=== PATIENT | female | born 1950 | race Caucasian/White ===

== ENCOUNTER 2019-04-07 09:46 | Inpatient (IN) | payer MEDICARE, BC ==
[2019-04-07 10:28] VITALS: BP 131/71
[2019-04-07] MEDS ORDERED: Magnesium Hydroxide (MOM) 30 mL UDC PO PRN (11:17)
[2019-04-07] MEDS ORDERED: Maalox 30 mL Cup PO PRN (11:17)
--- NOTE | 2019-04-07 21:57 | History & Physical ---
ADMIT DATE: 04/07/2019 HISTORY OF PRESENT ILLNESS: The patient is a 69-year-old female with long history of degenerative joint disease, dementia, admitted to [facility] under Dr. Carrillo's service for evaluation and treatment. No fever, no chills, no nausea, no vomiting. PAST MEDICAL HISTORY: Significant for degenerative joint disease, dementia, and psychosis. PAST SURGICAL HISTORY: No recent surgery. ALLERGIES: None. MEDICATIONS: Follow admission reconciliation. SOCIAL HISTORY: No smoking, no alcohol, no drug. FAMILY HISTORY: Noncontributory. REVIEW OF SYSTEMS: RENAL SYSTEM: No history of chronic renal disorder. CARDIOVASCULAR SYSTEM: No coronary artery disease. ENDOCRINE SYSTEM: No diabetes or thyroid problem. GASTROINTESTINAL SYSTEM: No upper or lower gastrointestinal bleed. NEUROLOGICAL SYSTEM: Seizure disorder. SKELETOMUSCULAR SYSTEM: She has degenerative joint disease. HEMATOLOGIC SYSTEM: No bleeding tendencies. RESPIRATORY SYSTEM: No asthma. GENITOURINARY: No dysuria or hematuria. PHYSICAL EXAMINATION: GENERAL: She is awake, not coherent, confused. VITAL SIGNS: Temperature 97.7, heart rate 63, blood pressure 131/71. HEENT: Normocephalic. Pupils reacting equally to light and accommodation. Sclerae clear. NECK: Supple. Negative for lymphadenopathy, JVD or bruit. CHEST: Entry of air bilaterally normal. No rhonchi or wheezing. HEART: S1, S2 normal. No gallop rhythm. ABDOMEN: Soft, bowel sounds positive. EXTREMITIES: No edema. NEUROLOGICAL: She is awake, not coherent. No focal muscle deficits. Cranial nerves 2-12 are intact. ASSESSMENT: 1. Degenerative joint disease. 2. Dementia. 3. Psychosis. PLAN: The patient in the hospital under Dr. Carrillo's service. Medical problem addressed during hospitalization is psychosis. Medical problem addressed at discharge, degenerative joint disease. The patient is medically stable for activity. Thank you Dr. Carrillo for asking me to see your patient. JOB# [id number]
--- NOTE | 2019-04-07 22:30 | Psychiatric Evaluation ---
DATE OF SERVICE: 04/07/2019 IDENTIFYING DATA: The patient is a 69-year-old woman, currently homeless. Information obtained by directly interviewing the patient as well as reviewing the admission papers and they are reliable. JUSTIFICATION OF HOSPITALIZATION: The patient is admitted on a 5150 as being gravely disabled and a danger to self. CHIEF COMPLAINT: "I don't know." HISTORY OF PRESENT ILLNESS: This is the first psychiatric hospitalization to [facility] for this patient who has been transferred from [facility] in [place]. As per the information, the patient is reported to have been brought over there. The patient has been medically cleared. The patient has been grossly psychotic and is not able to provide much of information where she has been stating. The patient has been placed on Zyprexa and has been medically cleared and transferred over here for further stabilization and when I am trying to talk to the patient, the patient is curling up in the bed and is not providing much of information. The patient's eye contact is noted to be very poor. Mood is noted to be dysphoric. Affect is noted to be constricted. The patient is stating that she needs her medication, that?s all. PAST PSYCHIATRIC HISTORY: The patient is reported to have been diagnosed to have schizophrenia, chronic paranoid type and has been on Zyprexa, but has not been compliant with medication. MEDICAL HISTORY: Physical examination is requested to be done by Dr. Pyle. SUBSTANCE ABUSE HISTORY: None. PHYSICAL OR SEXUAL ABUSE HISTORY: None. LEGAL PROBLEMS: None at this time. STRENGTH AND ASSETS: The patient is motivated. MENTAL STATUS EXAMINATION: The patient is a 69-year-old woman looking her stated age, superficially cooperative. Eye contact is poor. Mood is noted to be irritable. Affect is constricted. The patient has paranoid delusions, but denies any command hallucinations. The patient is not presenting with any suicidal or homicidal ideation, but the patient is gravely disabled. The patient has no place to return to. The patient is alert and aware that she is in the hospital. Attention span and concentration are noted to be poor. The patient's short term memory is noted to be poor. Long-term memory seems to be fair. The patient is not able to recall where she was staying prior to being in the hospital DIAGNOSTIC IMPRESSION: AXIS I: Schizophrenia, chronic paranoid type. AXIS II: None. AXIS III: As per Dr. Pyle. IMMEDIATE TREATMENT PLAN: The patient is going to be observed on the inpatient unit, started on the Zyprexa 2.5 mg at bedtime. The patient is going to be closely monitored. Once stabilized, the patient is going to be discharged to self to be followed up on an outpatient basis. JOB# [id number]
[2019-04-08] MEDS: Multivitamin Tab PO SCH (08:36)
--- NOTE | 2019-04-08 21:00 | Internal Medicine Prog Note ---
Internal Medicine Subjective - Subjective Service Date: 04/08/19 Patient seen and examined:: with staff (THE PATIENT IS CONFUSED) Patient is:: awake, non-verbal, in bed, confused Per staff patient has:: no adverse event Internal Medicine Objective - Physical Exam Vitals and I&O: Vital Signs Temp 98.1 F 04/08/19 20:08 Pulse 72 04/08/19 20:08 Resp 20 04/08/19 20:08 BP 109/74 04/08/19 20:08 Pulse Ox 95 04/08/19 20:08 Intake & Output 04/08/19 04/08/19 04/09/19 06:59 18:59 06:59 Intake Total 120 120 240 Balance 120 120 240 Intake: Oral 120 120 240 Other: # Voids 2 2 1 # Bowel Movements 0 0 Active Medications: Current Medications Acetaminophen (Tylenol) 650 mg PO Q4HR PRN PRN Reason: Mild Pain (Scale 1-3) Stop: 06/06/19 11:16 Acetaminophen (Tylenol) 650 mg PO Q4H PRN PRN Reason: TEMP ABOVE 100 Stop: 06/06/19 11:35 Al Hydrox/Mg Hydrox/Simethicone (Maalox) 30 ml PO Q4HR PRN PRN Reason: GI DISTRESS Stop: 06/06/19 11:16 Lorazepam (Ativan) 0.5 mg PO Q6HR PRN; Protocol PRN Reason: Anxiety Stop: 06/06/19 11:20 Last Admin: 04/08/19 14:08 Dose: 0.5 mg Magnesium Hydroxide (Milk Of Magnesia) 30 ml PO HS PRN PRN Reason: Constipation Multivitamins/Vitamin C (Theragran) 1 tab PO DAILY DAYLIN Stop: 06/07/19 08:59 Last Admin: 04/08/19 08:36 Dose: 1 tab Olanzapine (Zyprexa) 2.5 mg PO HS DAYLIN; Protocol Stop: 06/06/19 20:59 Last Admin: 04/07/19 21:23 Dose: 2.5 mg Zolpidem Tartrate (Ambien) 5 mg PO HS PRN PRN Reason: Insomnia Stop: 06/06/19 11:16 General: demented HEENT: NC/AT, PERRLA, EOMI, anicteric sclerae, throat clear Neck: Supple, No JVD, No thyromegaly, +2 carotid pulse wo bruit, No LAD, + JVD Lungs: CTAB Cardiovascular: RRR, Normal S1, Normal S2, without murmur Abdomen: soft, non-tender, non-distended Extremities: clear Neurological: no change Internal Medicine Assmt/Plan - Assessment Assessment: 1.DJD. 2.DEMENTIA. 3.PSYCHOSIS - Plan Plan: CONTINUE ON CURRENT MEDICATION AND DET
[2019-04-09] MEDS: Multivitamin Tab PO SCH (08:05)
--- NOTE | 2019-04-09 09:23 | Progress Notes ---
DATE: 04/08/2019 SUBJECTIVE: Staff was spoken to. The patient is interviewed. Mood is noted to be irritable. Affect is constricted. The patient is isolative and withdrawn, continues to be very paranoid and is responding to internal stimuli. The patient is currently on olanzapine and has been able to tolerate the medications. No side effects to the medications are noted. ASSESSMENT: The patient is still impulsive and paranoid. PLAN: To continue the patient with supportive therapy and followup. JOB# [id number]
--- NOTE | 2019-04-09 20:53 | General Progress Note ---
Subjective - Review of Systems Service Date: 04/09/19 Subjective: resting comfortably no distress Objective - Physical Exam Vitals and I&O: Vital Signs Temp 97.9 F 04/09/19 20:45 Pulse 66 04/09/19 20:45 Resp 18 04/09/19 20:45 BP 112/72 04/09/19 20:45 Pulse Ox 91 04/09/19 20:45 Intake & Output 04/09/19 04/09/19 04/10/19 06:59 18:59 06:59 Intake Total 300 240 Balance 300 240 Intake: Oral 300 240 Other: # Voids 1 2 # Bowel Movements 0 Active Medications: Current Medications Acetaminophen (Tylenol) 650 mg PO Q4HR PRN PRN Reason: Mild Pain (Scale 1-3) Stop: 06/06/19 11:16 Acetaminophen (Tylenol) 650 mg PO Q4H PRN PRN Reason: TEMP ABOVE 100 Stop: 06/06/19 11:35 Al Hydrox/Mg Hydrox/Simethicone (Maalox) 30 ml PO Q4HR PRN PRN Reason: GI DISTRESS Stop: 06/06/19 11:16 Lorazepam (Ativan) 0.5 mg PO Q6HR PRN; Protocol PRN Reason: Anxiety Stop: 06/06/19 11:20 Last Admin: 04/08/19 14:08 Dose: 0.5 mg Magnesium Hydroxide (Milk Of Magnesia) 30 ml PO HS PRN PRN Reason: Constipation Multivitamins/Vitamin C (Theragran) 1 tab PO DAILY DAYLIN Stop: 06/07/19 08:59 Last Admin: 04/09/19 08:05 Dose: 1 tab Olanzapine (Zyprexa) 5 mg PO HS DAYLIN; Protocol Stop: 06/08/19 20:59 Zolpidem Tartrate (Ambien) 5 mg PO HS PRN PRN Reason: Insomnia Stop: 06/06/19 11:16 General: No acute distress HEENT: Atraumatic, PERRLA Neck: Supple, JVD, Thyromegaly Cardiovascular: Regular rate, Normal S1, Normal S2 Lungs: Clear to auscultation Abdomen: Bowel sounds, Soft Assessment/Plan - Assessment Assessment: 1.DJD. 2.DEMENTIA. 3.PSYCHOSIS - Plan Plan: continue current treatment
--- NOTE | 2019-04-09 22:56 | Progress Notes ---
DATE: 04/09/2019 SUBJECTIVE: Staff was spoken to. The patient is interviewed. Mood is noted to be irritable. Affect is constricted. The patient has been pacing most of the time on the unit. The patient has been getting into other people's belongings. The patient has no insight into her illness. The patient is very paranoid and has been screaming and yelling when she does not get her way. The patient is currently on the 2.5 mg of Zyprexa. I am planning to increase that one to 5 mg at bedtime and follow the patient. ASSESSMENT: The patient is still psychotic and impulsive. PLAN: To continue the patient with the current medications and follow her up. The patient is not ready to be discharged to a lower level of care in view of her psychosis. JOB# [id number]
[2019-04-10] MEDS: Multivitamin Tab PO SCH (08:30)
--- NOTE | 2019-04-10 13:59 | General Progress Note ---
Subjective - Review of Systems Service Date: 04/10/19 Subjective: resting comfortably no distress Objective - Physical Exam Vitals and I&O: Vital Signs Temp 97.3 F 04/10/19 06:24 Pulse 92 04/10/19 06:24 Resp 20 04/10/19 06:24 BP 110/74 04/10/19 06:24 Pulse Ox 96 04/10/19 06:24 Intake & Output 04/09/19 04/10/19 04/10/19 18:59 06:59 18:59 Intake Total 240 Balance 240 Intake: Oral 240 Other: # Voids 2 Active Medications: Current Medications Acetaminophen (Tylenol) 650 mg PO Q4HR PRN PRN Reason: Mild Pain (Scale 1-3) Stop: 06/06/19 11:16 Acetaminophen (Tylenol) 650 mg PO Q4H PRN PRN Reason: TEMP ABOVE 100 Stop: 06/06/19 11:35 Al Hydrox/Mg Hydrox/Simethicone (Maalox) 30 ml PO Q4HR PRN PRN Reason: GI DISTRESS Stop: 06/06/19 11:16 Lorazepam (Ativan) 0.5 mg PO Q6HR PRN; Protocol PRN Reason: Anxiety Stop: 06/06/19 11:20 Last Admin: 04/10/19 12:53 Dose: 0.5 mg Magnesium Hydroxide (Milk Of Magnesia) 30 ml PO HS PRN PRN Reason: Constipation Multivitamins/Vitamin C (Theragran) 1 tab PO DAILY DAYLIN Stop: 06/07/19 08:59 Last Admin: 04/10/19 08:30 Dose: 1 tab Olanzapine (Zyprexa) 5 mg PO HS DAYLIN; Protocol Stop: 06/08/19 20:59 Zolpidem Tartrate (Ambien) 5 mg PO HS PRN PRN Reason: Insomnia Stop: 06/06/19 11:16 Last Admin: 04/09/19 20:56 Dose: 5 mg General: No acute distress HEENT: Atraumatic, PERRLA Neck: Supple, JVD, Thyromegaly Cardiovascular: Regular rate, Normal S1, Normal S2 Lungs: Clear to auscultation Abdomen: Bowel sounds, Soft Assessment/Plan - Assessment Assessment: 1.DJD. 2.DEMENTIA. 3.PSYCHOSIS - Plan Plan: continue current treatment Nutritional Asmnt/Malnutr-PDOC - Dietary Evaluation Malnutrition Findings (Please click <Entered> for more info): Nutritional Asmnt/Malnutrition Start: 04/10/19 11: 32 Text: Status: Complete Freq: Protocol: Document 04/10/19 11:32 RUFINO (Rec: 04/10/19 11:36 [email or web address] [id number]) Nutritional Asmnt/Malnutrition Patient General Information Nutritional Screening Low Risk Consult Diagnosis Psychosis Pertinent Medical Hx/Surgical Hx DJD, Dementia, Psychosis Subjective Information Consult: Wound to abdomen/ nutrition Pt is a 69-year-old female admitted on 04/07 d/t psychosis . Pt is eating an estimated 45 % of meals x2 days Per Meal/ Nutrition Activity Record. Dietary is currently providing an estimated 2100 kcals and 100 gm Pro, per Pt PO intake this is providing an estimated 945 kcals and 45gm Pro to meet 60% kcal and 70% Pro needs. Spoke with nurse Lara, pt ate good this morning. Stated he will update the meal/nutrition activity log for PO yesterday as she ate well. Stated pt wound is healed well, no longer open and scab is almost gone as well. Reviewed wound pictures in pt chart, wound progression documented and wound is scabbed and healing as Lara stated. Anthropometrics HT: 54 WT: 139 LB (63.18 kg) BMI: 23.89 (Normal) GI/ Skin Integrity GI: WNL, Soft, Flat BM: Not Noted I/O: 240/Not Noted Skin: Abdominal Wound, erythema, reddened Vasquez: 21 Diet Order: Regular Estimated Energy Needs: ( Geriatric, CBW) 6520-3856 kcals (25-30 kcals/ kg) 63-76g Pro (1.0-1.2 g/kg) 7534-8246 ml (25-30 ml/kg) Current Diet Order/ Nutrition Support Regular Pertinent Medications Maalox (PRN), MOM (PRN), Theragran Pertinent Labs No pertinent labs drawn/ charted. Nutritional Hx/Data Height 1.63 m Height (Calculated Centimeters) 162.6 Current Weight (lbs) 63.049 kg Weight (Calculated Kilograms) 63.0 Weight (Calculated Grams) 61999.3 [place] Body Weight 120 LB (54.55 kg) % [place] Body Weight 116 Body Mass Index (BMI) 23.8 Weight Status Approriate GI Symptoms GI Symptoms None Last BM Not Noted Skin Integrity/Comment: Skin: Abdominal Wound, erythema, reddened Vasquez: 21 NurseLara stated pt wound is healed well, no longer open and scab is almost gone as well. Reviewed wound pictures in pt chart, wound progression documented, and wound is scabbed and healing as Lara stated. Estimated Nutritional Goals BEE in Kcals: Using Current wt Calories/Kcals/Kg 25-30 Kcals Calculated 5420-4857 Protein: Using Current wt Protein g/k.0-1.2 Protein Calculated 63-76 Fluid: ml 2784-1443 ml (25-30 ml/kg) Nutritional Problem No current Nutrition Prob Problem No nutrition diagnosis at this time. Etiology N/A Signs/Symptoms: N/A Malnutrition Related to Morbid Obesity Malnutrition related to morbid obesity No Intervention/Recommendation Comments Continue regular diet as tolerated. Expected Outcomes/Goals Expected Outcomes/Goals 1. PO intake to meet 75% of estimated nutritional needs. 2. Monitor PO intake, wt, nutrition related labs, and skin integrity to trend WNL. 3. F/U as low risk in 7-10 days, 04/17-04/20
[2019-04-11] MEDS: Multivitamin Tab PO SCH (08:10)
--- NOTE | 2019-04-11 18:16 | Internal Medicine Prog Note ---
Internal Medicine Subjective - Subjective Service Date: 04/11/19 Patient seen and examined:: without staff (SHE IS DOING WELL) Patient is:: awake, non-verbal, in bed, confused Per staff patient has:: no adverse event Internal Medicine Objective - Physical Exam Vitals and I&O: Vital Signs Temp 98.0 F 04/11/19 15:30 Pulse 64 04/11/19 15:30 Resp 20 04/11/19 15:30 BP 134/90 04/11/19 15:30 Pulse Ox 97 04/11/19 15:30 Intake & Output 04/10/19 04/11/19 04/11/19 18:59 06:59 18:59 Intake Total 900 420 Balance 900 420 Intake: Oral 900 420 Other: # Voids 3 2 # Bowel Movements 1 0 Active Medications: Current Medications Acetaminophen (Tylenol) 650 mg PO Q4HR PRN PRN Reason: Mild Pain (Scale 1-3) Stop: 06/06/19 11:16 Last Admin: 04/11/19 09:25 Dose: 650 mg Acetaminophen (Tylenol) 650 mg PO Q4H PRN PRN Reason: TEMP ABOVE 100 Stop: 06/06/19 11:35 Al Hydrox/Mg Hydrox/Simethicone (Maalox) 30 ml PO Q4HR PRN PRN Reason: GI DISTRESS Stop: 06/06/19 11:16 Lorazepam (Ativan) 0.5 mg PO Q6HR PRN; Protocol PRN Reason: Anxiety Stop: 06/06/19 11:20 Last Admin: 04/10/19 21:28 Dose: 0.5 mg Magnesium Hydroxide (Milk Of Magnesia) 30 ml PO HS PRN PRN Reason: Constipation Multivitamins/Vitamin C (Theragran) 1 tab PO DAILY DAYLIN Stop: 06/07/19 08:59 Last Admin: 04/11/19 08:10 Dose: 1 tab Olanzapine (Zyprexa) 5 mg PO HS DAYLIN; Protocol Stop: 06/08/19 20:59 Last Admin: 04/10/19 20:25 Dose: 5 mg Zolpidem Tartrate (Ambien) 5 mg PO HS PRN PRN Reason: Insomnia Stop: 06/06/19 11:16 Last Admin: 04/11/19 00:19 Dose: 5 mg General: demented HEENT: NC/AT, PERRLA, EOMI, anicteric sclerae, throat clear Neck: Supple, No JVD, No thyromegaly, +2 carotid pulse wo bruit, No LAD, + JVD Lungs: CTAB Cardiovascular: RRR, Normal S1, Normal S2, without murmur Abdomen: soft, non-tender, non-distended Extremities: clear Neurological: no change Internal Medicine Assmt/Plan - Assessment Assessment: 1.DJD. 2.DEMENTIA. 3.PSYCHOSIS - Plan Plan: CONTINUE ON CURRENT MEDICATION AND DET Nutritional Asmnt/Malnutr-PDOC - Dietary Evaluation Malnutrition Findings (Please click <Entered> for more info): Nutritional Asmnt/Malnutrition Start: 04/10/19 11: 32 Text: Status: Complete Freq: Protocol: Document 04/10/19 11:32 RUFINO (Rec: 04/10/19 11:36 RUFINO [id number]) Nutritional Asmnt/Malnutrition Patient General Information Nutritional Screening Low Risk Consult Diagnosis Psychosis Pertinent Medical Hx/Surgical Hx DJD, Dementia, Psychosis Subjective Information Consult: Wound to abdomen/ nutrition Pt is a 69-year-old female admitted on 04/07 d/t psychosis . Pt is eating an estimated 45 % of meals x2 days Per Meal/ Nutrition Activity Record. Dietary is currently providing an estimated 2100 kcals and 100 gm Pro, per Pt PO intake this is providing an estimated 945 kcals and 45gm Pro to meet 60% kcal and 70% Pro needs. Spoke with nurse Bermudez, pt ate good this morning. Stated he will update the meal/nutrition activity log for PO yesterday as she ate well. Stated pt wound is healed well, no longer open and scab is almost gone as well. Reviewed wound pictures in pt chart, wound progression documented and wound is scabbed and healing as Lara stated. Anthropometrics HT: 54 WT: 139 LB (63.18 kg) BMI: 23.89 (Normal) GI/ Skin Integrity GI: WNL, Soft, Flat BM: Not Noted I/O: 240/Not Noted Skin: Abdominal Wound, erythema, reddened Vasquez: 21 Diet Order: Regular Estimated Energy Needs: ( Geriatric, CBW) 7794-8736 kcals (25-30 kcals/ kg) 63-76g Pro (1.0-1.2 g/kg) 4953-1703 ml (25-30 ml/kg) Current Diet Order/ Nutrition Support Regular Pertinent Medications Maalox (PRN), MOM (PRN), Theragran Pertinent Labs No pertinent labs drawn/ charted. Nutritional Hx/Data Height 1.63 m Height (Calculated Centimeters) 162.6 Current Weight (lbs) 63.049 kg Weight (Calculated Kilograms) 63.0 Weight (Calculated Grams) 81133.3 [place] Body Weight 120 LB (54.55 kg) % [place] Body Weight 116 Body Mass Index (BMI) 23.8 Weight Status Approriate GI Symptoms GI Symptoms None Last BM Not Noted Skin Integrity/Comment: Skin: Abdominal Wound, erythema, reddened Vasquez: 21 Nurse, Lara stated pt wound is healed well, no longer open and scab is almost gone as well. Reviewed wound pictures in pt chart, wound progression documented, and wound is scabbed and healing as Lara stated. Estimated Nutritional Goals BEE in Kcals: Using Current wt Calories/Kcals/Kg 25-30 Kcals Calculated 7823-6096 Protein: Using Current wt Protein g/k.0-1.2 Protein Calculated 63-76 Fluid: ml 7260-9284 ml (25-30 ml/kg) Nutritional Problem No current Nutrition Prob Problem No nutrition diagnosis at this time. Etiology N/A Signs/Symptoms: N/A Malnutrition Related to Morbid Obesity Malnutrition related to morbid obesity No Intervention/Recommendation Comments Continue regular diet as tolerated. Expected Outcomes/Goals Expected Outcomes/Goals 1. PO intake to meet 75% of estimated nutritional needs. 2. Monitor PO intake, wt, nutrition related labs, and skin integrity to trend WNL. 3. F/U as low risk in 7-10 days, 04/17-04/20
--- NOTE | 2019-04-12 02:41 | Progress Notes ---
DATE: 04/11/2019 PSYCHIATRIC PROGRESS NOTE SUBJECTIVE: Staff was spoken to. The patient is interviewed. Mood is noted to be irritable. Affect is constricted. Insight and judgment are noted to be still impaired. Impulse control is noted to be limited. The patient is pacing most of the time on the unit. No side effects to the medications are noted. The patient has been having difficult time to cope with the stress. The patient is being redirected. The patient has been getting easily upset. No side effects to the medications are noted. ASSESSMENT: The patient is still psychotic and impulsive. PLAN: To continue the patient with the supportive therapy and followup. JOB# [id number]
[2019-04-12] MEDS: Multivitamin Tab PO SCH (08:59)
--- NOTE | 2019-04-12 21:13 | Internal Medicine Prog Note ---
Internal Medicine Subjective - Subjective Service Date: 04/12/19 Patient seen and examined:: without staff (SHE IS DOING BETTER) Patient is:: awake, non-verbal, in bed, confused Per staff patient has:: no adverse event Internal Medicine Objective - Physical Exam Vitals and I&O: Vital Signs Temp 98.1 F 04/12/19 14:00 Pulse 73 04/12/19 14:00 Resp 18 04/12/19 14:00 BP 142/61 04/12/19 14:00 Pulse Ox 86 04/12/19 14:00 Intake & Output 04/12/19 04/12/19 04/13/19 06:59 18:59 06:59 Intake Total 240 800 Balance 240 800 Intake: Oral 240 800 Other: # Voids 2 3 # Bowel Movements 0 Active Medications: Current Medications Acetaminophen (Tylenol) 650 mg PO Q4HR PRN PRN Reason: Mild Pain (Scale 1-3) Stop: 06/06/19 11:16 Last Admin: 04/11/19 09:25 Dose: 650 mg Acetaminophen (Tylenol) 650 mg PO Q4H PRN PRN Reason: TEMP ABOVE 100 Stop: 06/06/19 11:35 Al Hydrox/Mg Hydrox/Simethicone (Maalox) 30 ml PO Q4HR PRN PRN Reason: GI DISTRESS Stop: 06/06/19 11:16 Lorazepam (Ativan) 0.5 mg PO Q6HR PRN; Protocol PRN Reason: Anxiety Stop: 06/06/19 11:20 Last Admin: 04/12/19 08:59 Dose: 0.5 mg Magnesium Hydroxide (Milk Of Magnesia) 30 ml PO HS PRN PRN Reason: Constipation Multivitamins/Vitamin C (Theragran) 1 tab PO DAILY DAYLIN Stop: 06/07/19 08:59 Last Admin: 04/12/19 08:59 Dose: 1 tab Olanzapine (Zyprexa) 5 mg PO HS DAYLIN; Protocol Stop: 06/08/19 20:59 Last Admin: 04/12/19 20:50 Dose: 5 mg Zolpidem Tartrate (Ambien) 5 mg PO HS PRN PRN Reason: Insomnia Stop: 06/06/19 11:16 Last Admin: 04/12/19 20:51 Dose: 5 mg General: demented HEENT: NC/AT, PERRLA, EOMI, anicteric sclerae, throat clear Neck: Supple, No JVD, No thyromegaly, +2 carotid pulse wo bruit, No LAD, + JVD Lungs: CTAB Cardiovascular: RRR, Normal S1, Normal S2, without murmur Abdomen: soft, non-tender, non-distended Extremities: clear Neurological: no change Internal Medicine Assmt/Plan - Assessment Assessment: 1.DJD. 2.DEMENTIA. 3.PSYCHOSIS - Plan Plan: CONTINUE ON CURRENT MEDICATION AND DET Nutritional Asmnt/Malnutr-PDOC - Dietary Evaluation Malnutrition Findings (Please click <Entered> for more info): Nutritional Asmnt/Malnutrition Start: 04/10/19 11: 32 Text: Status: Complete Freq: Protocol: Document 04/10/19 11:32 RUFINO (Rec: 04/10/19 11:36 RUFINO [id number]) Nutritional Asmnt/Malnutrition Patient General Information Nutritional Screening Low Risk Consult Diagnosis Psychosis Pertinent Medical Hx/Surgical Hx DJD, Dementia, Psychosis Subjective Information Consult: Wound to abdomen/ nutrition Pt is a 69-year-old female admitted on 04/07 d/t psychosis . Pt is eating an estimated 45 % of meals x2 days Per Meal/ Nutrition Activity Record. Dietary is currently providing an estimated 2100 kcals and 100 gm Pro, per Pt PO intake this is providing an estimated 945 kcals and 45gm Pro to meet 60% kcal and 70% Pro needs. Spoke with nurse Bermudez, pt ate good this morning. Stated he will update the meal/nutrition activity log for PO yesterday as she ate well. Stated pt wound is healed well, no longer open and scab is almost gone as well. Reviewed wound pictures in pt chart, wound progression documented and wound is scabbed and healing as Lara stated. Anthropometrics HT: 54 WT: 139 LB (63.18 kg) BMI: 23.89 (Normal) GI/ Skin Integrity GI: WNL, Soft, Flat BM: Not Noted I/O: 240/Not Noted Skin: Abdominal Wound, erythema, reddened Vasquez: 21 Diet Order: Regular Estimated Energy Needs: ( Geriatric, CBW) 6527-1956 kcals (25-30 kcals/ kg) 63-76g Pro (1.0-1.2 g/kg) 1173-5412 ml (25-30 ml/kg) Current Diet Order/ Nutrition Support Regular Pertinent Medications Maalox (PRN), MOM (PRN), Theragran Pertinent Labs No pertinent labs drawn/ charted. Nutritional Hx/Data Height 1.63 m Height (Calculated Centimeters) 162.6 Current Weight (lbs) 63.049 kg Weight (Calculated Kilograms) 63.0 Weight (Calculated Grams) 00231.3 [place] Body Weight 120 LB (54.55 kg) % [place] Body Weight 116 Body Mass Index (BMI) 23.8 Weight Status Approriate GI Symptoms GI Symptoms None Last BM Not Noted Skin Integrity/Comment: Skin: Abdominal Wound, erythema, reddened Vasquez: 21 Nurse, Lara stated pt wound is healed well, no longer open and scab is almost gone as well. Reviewed wound pictures in pt chart, wound progression documented, and wound is scabbed and healing as Lara stated. Estimated Nutritional Goals BEE in Kcals: Using Current wt Calories/Kcals/Kg 25-30 Kcals Calculated 1609-7398 Protein: Using Current wt Protein g/k.0-1.2 Protein Calculated 63-76 Fluid: ml 8132-4645 ml (25-30 ml/kg) Nutritional Problem No current Nutrition Prob Problem No nutrition diagnosis at this time. Etiology N/A Signs/Symptoms: N/A Malnutrition Related to Morbid Obesity Malnutrition related to morbid obesity No Intervention/Recommendation Comments Continue regular diet as tolerated. Expected Outcomes/Goals Expected Outcomes/Goals 1. PO intake to meet 75% of estimated nutritional needs. 2. Monitor PO intake, wt, nutrition related labs, and skin integrity to trend WNL. 3. F/U as low risk in 7-10 days, 04/17-04/20
--- NOTE | 2019-04-13 02:42 | Progress Notes ---
DATE: 04/12/2019 SUBJECTIVE: Staff was spoken to. The patient is interviewed. Mood is noted to be irritable. Affect is constricted. The patient's insight and judgment are noted to be still impaired. Impulse control is noted to be limited. The patient is pacing most of the time on the unit. The patient has no insight into her illness. The patient has been having difficult time to cope with the stress. The patient is confused and demented and has been getting easily agitated. Currently, the patient is on olanzapine 5 mg and has been able to tolerate the medications. No side effects to the medications are noted. The patient still has paranoid delusions. ASSESSMENT: The patient is still psychotic and impulsive. PLAN: To continue the patient with the current medications. I encouraged the patient to verbalize the concerns rather than to act out. JOB# [id number]
[2019-04-13] MEDS: Multivitamin Tab PO SCH (08:04)
--- NOTE | 2019-04-13 23:15 | Internal Medicine Prog Note ---
Internal Medicine Subjective - Subjective Service Date: 04/13/19 Patient seen and examined:: without staff (SHE IS CONFUSED) Patient is:: awake, non-verbal, in bed, confused Per staff patient has:: no adverse event Internal Medicine Objective - Physical Exam Vitals and I&O: Vital Signs Temp 97.3 F 04/13/19 21:22 Pulse 80 04/13/19 21:22 Resp 20 04/13/19 21:22 BP 119/68 04/13/19 21:22 Pulse Ox 94 04/13/19 21:22 Intake & Output 04/13/19 04/13/19 04/14/19 06:59 18:59 06:59 Intake Total 240 800 120 Balance 240 800 120 Intake: Oral 240 800 120 Other: # Voids 2 3 2 # Bowel Movements 0 0 Active Medications: Current Medications Acetaminophen (Tylenol) 650 mg PO Q4HR PRN PRN Reason: Mild Pain (Scale 1-3) Stop: 06/06/19 11:16 Last Admin: 04/11/19 09:25 Dose: 650 mg Acetaminophen (Tylenol) 650 mg PO Q4H PRN PRN Reason: TEMP ABOVE 100 Stop: 06/06/19 11:35 Al Hydrox/Mg Hydrox/Simethicone (Maalox) 30 ml PO Q4HR PRN PRN Reason: GI DISTRESS Stop: 06/06/19 11:16 Lorazepam (Ativan) 0.5 mg PO Q6HR PRN; Protocol PRN Reason: Anxiety Stop: 06/06/19 11:20 Last Admin: 04/12/19 08:59 Dose: 0.5 mg Magnesium Hydroxide (Milk Of Magnesia) 30 ml PO HS PRN PRN Reason: Constipation Multivitamins/Vitamin C (Theragran) 1 tab PO DAILY DAYLIN Stop: 06/07/19 08:59 Last Admin: 04/13/19 08:04 Dose: 1 tab Olanzapine (Zyprexa) 5 mg PO HS DAYLIN; Protocol Stop: 06/08/19 20:59 Last Admin: 04/13/19 21:06 Dose: 5 mg Zolpidem Tartrate (Ambien) 5 mg PO HS PRN PRN Reason: Insomnia Stop: 06/06/19 11:16 Last Admin: 04/13/19 21:06 Dose: 5 mg General: demented HEENT: NC/AT, PERRLA, EOMI, anicteric sclerae, throat clear Neck: Supple, No JVD, No thyromegaly, +2 carotid pulse wo bruit, No LAD, + JVD Lungs: CTAB Cardiovascular: RRR, Normal S1, Normal S2, without murmur Abdomen: soft, non-tender, non-distended Extremities: clear Neurological: no change Internal Medicine Assmt/Plan - Assessment Assessment: 1.DJD. 2.DEMENTIA. 3.PSYCHOSIS - Plan Plan: CONTINUE ON CURRENT MEDICATION AND DET Nutritional Asmnt/Malnutr-PDOC - Dietary Evaluation Malnutrition Findings (Please click <Entered> for more info): Nutritional Asmnt/Malnutrition Start: 04/10/19 11: 32 Text: Status: Complete Freq: Protocol: Document 04/10/19 11:32 RUFINO (Rec: 04/10/19 11:36 RUFINO [id number]) Nutritional Asmnt/Malnutrition Patient General Information Nutritional Screening Low Risk Consult Diagnosis Psychosis Pertinent Medical Hx/Surgical Hx DJD, Dementia, Psychosis Subjective Information Consult: Wound to abdomen/ nutrition Pt is a 69-year-old female admitted on 04/07 d/t psychosis . Pt is eating an estimated 45 % of meals x2 days Per Meal/ Nutrition Activity Record. Dietary is currently providing an estimated 2100 kcals and 100 gm Pro, per Pt PO intake this is providing an estimated 945 kcals and 45gm Pro to meet 60% kcal and 70% Pro needs. Spoke with nurse Bermudez, pt ate good this morning. Stated he will update the meal/nutrition activity log for PO yesterday as she ate well. Stated pt wound is healed well, no longer open and scab is almost gone as well. Reviewed wound pictures in pt chart, wound progression documented and wound is scabbed and healing as Lara stated. Anthropometrics HT: 54 WT: 139 LB (63.18 kg) BMI: 23.89 (Normal) GI/ Skin Integrity GI: WNL, Soft, Flat BM: Not Noted I/O: 240/Not Noted Skin: Abdominal Wound, erythema, reddened Vasquez: 21 Diet Order: Regular Estimated Energy Needs: ( Geriatric, CBW) 2798-6659 kcals (25-30 kcals/ kg) 63-76g Pro (1.0-1.2 g/kg) 5940-1337 ml (25-30 ml/kg) Current Diet Order/ Nutrition Support Regular Pertinent Medications Maalox (PRN), MOM (PRN), Theragran Pertinent Labs No pertinent labs drawn/ charted. Nutritional Hx/Data Height 1.63 m Height (Calculated Centimeters) 162.6 Current Weight (lbs) 63.049 kg Weight (Calculated Kilograms) 63.0 Weight (Calculated Grams) 62861.3 [place] Body Weight 120 LB (54.55 kg) % [place] Body Weight 116 Body Mass Index (BMI) 23.8 Weight Status Approriate GI Symptoms GI Symptoms None Last BM Not Noted Skin Integrity/Comment: Skin: Abdominal Wound, erythema, reddened Vasquez: 21 NurseLara stated pt wound is healed well, no longer open and scab is almost gone as well. Reviewed wound pictures in pt chart, wound progression documented, and wound is scabbed and healing as Lara stated. Estimated Nutritional Goals BEE in Kcals: Using Current wt Calories/Kcals/Kg 25-30 Kcals Calculated 8599-1773 Protein: Using Current wt Protein g/k.0-1.2 Protein Calculated 63-76 Fluid: ml 1820-1553 ml (25-30 ml/kg) Nutritional Problem No current Nutrition Prob Problem No nutrition diagnosis at this time. Etiology N/A Signs/Symptoms: N/A Malnutrition Related to Morbid Obesity Malnutrition related to morbid obesity No Intervention/Recommendation Comments Continue regular diet as tolerated. Expected Outcomes/Goals Expected Outcomes/Goals 1. PO intake to meet 75% of estimated nutritional needs. 2. Monitor PO intake, wt, nutrition related labs, and skin integrity to trend WNL. 3. F/U as low risk in 7-10 days, 04/17-04/20
--- NOTE | 2019-04-14 01:36 | Progress Notes ---
DATE: 04/13/2019 PSYCHIATRIC PROGRESS NOTE SUBJECTIVE: Staff was spoken to. The patient is interviewed. Mood is noted to be irritable. Affect is constricted. Insight and judgment at this time are noted to be impaired. Impulse control is noted to be limited. Coping skills are noted to be limited. The patient has been pacing most of the time on the unit. The patient has no insight into her illness. The patient is still responding to internal stimuli and is very paranoid. ASSESSMENT: The patient is still psychotic and impulsive. PLAN: To continue the patient with the supportive therapy, encouraged the patient to verbalize the concerns rather than to act out. JOB# [id number]
[2019-04-14] MEDS: Multivitamin Tab PO SCH (08:21)
--- NOTE | 2019-04-14 15:39 | Internal Medicine Prog Note ---
Internal Medicine Subjective - Subjective Service Date: 04/14/19 Patient seen and examined:: without staff (SHE IS DOING WELL) Patient is:: awake, non-verbal, in bed, confused Per staff patient has:: no adverse event Internal Medicine Objective - Physical Exam Vitals and I&O: Vital Signs Temp 97.6 F 04/14/19 14:00 Pulse 90 04/14/19 14:00 Resp 20 04/14/19 14:00 BP 116/74 04/14/19 14:00 Pulse Ox 97 04/14/19 14:00 Intake & Output 04/13/19 04/14/19 04/14/19 18:59 06:59 18:59 Intake Total 800 120 120 Balance 800 120 120 Intake: Oral 800 120 120 Other: # Voids 3 2 2 # Bowel Movements 0 0 Active Medications: Current Medications Acetaminophen (Tylenol) 650 mg PO Q4HR PRN PRN Reason: Mild Pain (Scale 1-3) Stop: 06/06/19 11:16 Last Admin: 04/11/19 09:25 Dose: 650 mg Acetaminophen (Tylenol) 650 mg PO Q4H PRN PRN Reason: TEMP ABOVE 100 Stop: 06/06/19 11:35 Al Hydrox/Mg Hydrox/Simethicone (Maalox) 30 ml PO Q4HR PRN PRN Reason: GI DISTRESS Stop: 06/06/19 11:16 Lorazepam (Ativan) 0.5 mg PO Q6HR PRN; Protocol PRN Reason: Anxiety Stop: 06/06/19 11:20 Last Admin: 04/12/19 08:59 Dose: 0.5 mg Magnesium Hydroxide (Milk Of Magnesia) 30 ml PO HS PRN PRN Reason: Constipation Multivitamins/Vitamin C (Theragran) 1 tab PO DAILY DAYLIN Stop: 06/07/19 08:59 Last Admin: 04/14/19 08:21 Dose: 1 tab Olanzapine (Zyprexa) 5 mg PO HS DAYLIN; Protocol Stop: 06/08/19 20:59 Last Admin: 04/13/19 21:06 Dose: 5 mg Zolpidem Tartrate (Ambien) 5 mg PO HS PRN PRN Reason: Insomnia Stop: 06/06/19 11:16 Last Admin: 04/13/19 21:06 Dose: 5 mg General: demented HEENT: NC/AT, PERRLA, EOMI, anicteric sclerae, throat clear Neck: Supple, No JVD, No thyromegaly, +2 carotid pulse wo bruit, No LAD, + JVD Lungs: CTAB Cardiovascular: RRR, Normal S1, Normal S2, without murmur Abdomen: soft, non-tender, non-distended Extremities: clear Neurological: no change Internal Medicine Assmt/Plan - Assessment Assessment: 1.DJD. 2.DEMENTIA. 3.PSYCHOSIS - Plan Plan: CONTINUE ON CURRENT MEDICATION AND DET Nutritional Asmnt/Malnutr-PDOC - Dietary Evaluation Malnutrition Findings (Please click <Entered> for more info): Nutritional Asmnt/Malnutrition Start: 04/10/19 11: 32 Text: Status: Complete Freq: Protocol: Document 04/10/19 11:32 RUFINO (Rec: 04/10/19 11:36 RUFINO [id number]) Nutritional Asmnt/Malnutrition Patient General Information Nutritional Screening Low Risk Consult Diagnosis Psychosis Pertinent Medical Hx/Surgical Hx DJD, Dementia, Psychosis Subjective Information Consult: Wound to abdomen/ nutrition Pt is a 69-year-old female admitted on 04/07 d/t psychosis . Pt is eating an estimated 45 % of meals x2 days Per Meal/ Nutrition Activity Record. Dietary is currently providing an estimated 2100 kcals and 100 gm Pro, per Pt PO intake this is providing an estimated 945 kcals and 45gm Pro to meet 60% kcal and 70% Pro needs. Spoke with nurse Bermudez, pt ate good this morning. Stated he will update the meal/nutrition activity log for PO yesterday as she ate well. Stated pt wound is healed well, no longer open and scab is almost gone as well. Reviewed wound pictures in pt chart, wound progression documented and wound is scabbed and healing as Lara stated. Anthropometrics HT: 54 WT: 139 LB (63.18 kg) BMI: 23.89 (Normal) GI/ Skin Integrity GI: WNL, Soft, Flat BM: Not Noted I/O: 240/Not Noted Skin: Abdominal Wound, erythema, reddened Vasquez: 21 Diet Order: Regular Estimated Energy Needs: ( Geriatric, CBW) 5924-5253 kcals (25-30 kcals/ kg) 63-76g Pro (1.0-1.2 g/kg) 0610-4869 ml (25-30 ml/kg) Current Diet Order/ Nutrition Support Regular Pertinent Medications Maalox (PRN), MOM (PRN), Theragran Pertinent Labs No pertinent labs drawn/ charted. Nutritional Hx/Data Height 1.63 m Height (Calculated Centimeters) 162.6 Current Weight (lbs) 63.049 kg Weight (Calculated Kilograms) 63.0 Weight (Calculated Grams) 48364.3 [place] Body Weight 120 LB (54.55 kg) % [place] Body Weight 116 Body Mass Index (BMI) 23.8 Weight Status Approriate GI Symptoms GI Symptoms None Last BM Not Noted Skin Integrity/Comment: Skin: Abdominal Wound, erythema, reddened Vasquez: 21 NurseLara stated pt wound is healed well, no longer open and scab is almost gone as well. Reviewed wound pictures in pt chart, wound progression documented, and wound is scabbed and healing as Lara stated. Estimated Nutritional Goals BEE in Kcals: Using Current wt Calories/Kcals/Kg 25-30 Kcals Calculated 0217-3286 Protein: Using Current wt Protein g/k.0-1.2 Protein Calculated 63-76 Fluid: ml 5135-5465 ml (25-30 ml/kg) Nutritional Problem No current Nutrition Prob Problem No nutrition diagnosis at this time. Etiology N/A Signs/Symptoms: N/A Malnutrition Related to Morbid Obesity Malnutrition related to morbid obesity No Intervention/Recommendation Comments Continue regular diet as tolerated. Expected Outcomes/Goals Expected Outcomes/Goals 1. PO intake to meet 75% of estimated nutritional needs. 2. Monitor PO intake, wt, nutrition related labs, and skin integrity to trend WNL. 3. F/U as low risk in 7-10 days, 04/17-04/20
--- NOTE | 2019-04-14 23:14 | Progress Notes ---
DATE: 04/14/2019 SUBJECTIVE: Staff was spoken to. The patient is interviewed. Mood is noted to be irritable. Affect is constricted. The patient has paranoid delusions. The patient is getting into other people's rooms and has been taking the stuff. The patient has no insight into her illness. The patient needs to be redirected. The patient is still responding to internal stimuli. The patient is currently on Zyprexa and has been able to tolerate the medications. No side effects to the medications are noted at this time. The patient is still very disorganized and grossly psychotic and is not ready to be discharged to a lower level of care yet. JOB# [id number]
[2019-04-15] MEDS: Multivitamin Tab PO SCH (08:21)
--- NOTE | 2019-04-15 18:05 | Internal Medicine Prog Note ---
Internal Medicine Subjective - Subjective Service Date: 04/15/19 Patient seen and examined:: without staff (SHE IS CONFUSED) Patient is:: awake, non-verbal, in bed, confused Per staff patient has:: no adverse event Internal Medicine Objective - Physical Exam Vitals and I&O: Vital Signs Temp 97.3 F 04/15/19 14:00 Pulse 66 04/15/19 14:00 Resp 18 04/15/19 14:00 BP 119/57 04/15/19 14:00 Pulse Ox 99 04/15/19 14:00 Intake & Output 04/14/19 04/15/19 04/15/19 18:59 06:59 18:59 Intake Total 9547 913 2691 Balance 1733 641 8308 Intake: Oral 0997 189 0358 Other: # Voids 3 3 # Bowel Movements 0 1 1 Active Medications: Current Medications Acetaminophen (Tylenol) 650 mg PO Q4HR PRN PRN Reason: Mild Pain (Scale 1-3) Stop: 06/06/19 11:16 Last Admin: 04/11/19 09:25 Dose: 650 mg Acetaminophen (Tylenol) 650 mg PO Q4H PRN PRN Reason: TEMP ABOVE 100 Stop: 06/06/19 11:35 Al Hydrox/Mg Hydrox/Simethicone (Maalox) 30 ml PO Q4HR PRN PRN Reason: GI DISTRESS Stop: 06/06/19 11:16 Lorazepam (Ativan) 0.5 mg PO Q6HR PRN; Protocol PRN Reason: Anxiety Stop: 06/06/19 11:20 Last Admin: 04/12/19 08:59 Dose: 0.5 mg Magnesium Hydroxide (Milk Of Magnesia) 30 ml PO HS PRN PRN Reason: Constipation Multivitamins/Vitamin C (Theragran) 1 tab PO DAILY DAYLIN Stop: 06/07/19 08:59 Last Admin: 04/15/19 08:21 Dose: 1 tab Quetiapine Fumarate (Seroquel) 25 mg PO HS DAYLIN; Protocol Stop: 06/13/19 20:59 Last Admin: 04/14/19 22:00 Dose: 25 mg Zolpidem Tartrate (Ambien) 5 mg PO HS PRN PRN Reason: Insomnia Stop: 06/06/19 11:16 Last Admin: 04/13/19 21:06 Dose: 5 mg General: demented HEENT: NC/AT, PERRLA, EOMI, anicteric sclerae, throat clear Neck: Supple, No JVD, No thyromegaly, +2 carotid pulse wo bruit, No LAD, + JVD Lungs: CTAB Cardiovascular: RRR, Normal S1, Normal S2, without murmur Abdomen: soft, non-tender, non-distended Extremities: clear Neurological: no change Internal Medicine Assmt/Plan - Assessment Assessment: 1.DJD. 2.DEMENTIA. 3.PSYCHOSIS - Plan Plan: CONTINUE ON CURRENT MEDICATION AND DET Nutritional Asmnt/Malnutr-PDOC - Dietary Evaluation Malnutrition Findings (Please click <Entered> for more info): Nutritional Asmnt/Malnutrition Start: 04/10/19 11: 32 Text: Status: Complete Freq: Protocol: Document 04/10/19 11:32 RUFINO (Rec: 04/10/19 11:36 RUFINO [id number]) Nutritional Asmnt/Malnutrition Patient General Information Nutritional Screening Low Risk Consult Diagnosis Psychosis Pertinent Medical Hx/Surgical Hx DJD, Dementia, Psychosis Subjective Information Consult: Wound to abdomen/ nutrition Pt is a 69-year-old female admitted on 04/07 d/t psychosis . Pt is eating an estimated 45 % of meals x2 days Per Meal/ Nutrition Activity Record. Dietary is currently providing an estimated 2100 kcals and 100 gm Pro, per Pt PO intake this is providing an estimated 945 kcals and 45gm Pro to meet 60% kcal and 70% Pro needs. Spoke with nurse Bermudez, pt ate good this morning. Stated he will update the meal/nutrition activity log for PO yesterday as she ate well. Stated pt wound is healed well, no longer open and scab is almost gone as well. Reviewed wound pictures in pt chart, wound progression documented and wound is scabbed and healing as Lara stated. Anthropometrics HT: 54 WT: 139 LB (63.18 kg) BMI: 23.89 (Normal) GI/ Skin Integrity GI: WNL, Soft, Flat BM: Not Noted I/O: 240/Not Noted Skin: Abdominal Wound, erythema, reddened Vasquez: 21 Diet Order: Regular Estimated Energy Needs: ( Geriatric, CBW) 0846-8636 kcals (25-30 kcals/ kg) 63-76g Pro (1.0-1.2 g/kg) 7453-1504 ml (25-30 ml/kg) Current Diet Order/ Nutrition Support Regular Pertinent Medications Maalox (PRN), MOM (PRN), Theragran Pertinent Labs No pertinent labs drawn/ charted. Nutritional Hx/Data Height 1.63 m Height (Calculated Centimeters) 162.6 Current Weight (lbs) 63.049 kg Weight (Calculated Kilograms) 63.0 Weight (Calculated Grams) 45682.3 [place] Body Weight 120 LB (54.55 kg) % [place] Body Weight 116 Body Mass Index (BMI) 23.8 Weight Status Approriate GI Symptoms GI Symptoms None Last BM Not Noted Skin Integrity/Comment: Skin: Abdominal Wound, erythema, reddened Vasquez: 21 NurseLara stated pt wound is healed well, no longer open and scab is almost gone as well. Reviewed wound pictures in pt chart, wound progression documented, and wound is scabbed and healing as Lara stated. Estimated Nutritional Goals BEE in Kcals: Using Current wt Calories/Kcals/Kg 25-30 Kcals Calculated 7296-1108 Protein: Using Current wt Protein g/k.0-1.2 Protein Calculated 63-76 Fluid: ml 3527-4562 ml (25-30 ml/kg) Nutritional Problem No current Nutrition Prob Problem No nutrition diagnosis at this time. Etiology N/A Signs/Symptoms: N/A Malnutrition Related to Morbid Obesity Malnutrition related to morbid obesity No Intervention/Recommendation Comments Continue regular diet as tolerated. Expected Outcomes/Goals Expected Outcomes/Goals 1. PO intake to meet 75% of estimated nutritional needs. 2. Monitor PO intake, wt, nutrition related labs, and skin integrity to trend WNL. 3. F/U as low risk in 7-10 days, 04/17-04/20
--- NOTE | 2019-04-16 03:46 | Progress Notes ---
DATE: 04/15/2019 PSYCHIATRIC PROGRESS NOTE SUBJECTIVE: Staff was spoken to. The patient is interviewed. Mood is noted to be irritable. Affect is constricted. Insight and judgment are noted to be still impaired. Impulse control is noted to be limited. Has been pacing most of the time. The patient's appetite has gone up so much with the Zyprexa and it has to be discontinued. ASSESSMENT: The patient is still psychotic and impulsive. PLAN: To continue the patient with the supportive therapy and followup. JOB# [id number]
[2019-04-16] MEDS: Multivitamin Tab PO SCH (09:00)
--- NOTE | 2019-04-16 19:07 | Internal Medicine Prog Note ---
Internal Medicine Subjective - Subjective Service Date: 04/16/19 Patient seen and examined:: without staff (SHE IS DOING WELL) Patient is:: awake, non-verbal, in bed, confused Per staff patient has:: no adverse event Internal Medicine Objective - Physical Exam Vitals and I&O: Vital Signs Temp 97.6 F 04/16/19 14:00 Pulse 91 04/16/19 14:00 Resp 20 04/16/19 14:00 BP 129/71 04/16/19 14:00 Pulse Ox 97 04/16/19 14:00 Intake & Output 04/16/19 04/16/19 04/17/19 06:59 18:59 06:59 Intake Total 360 1200 Output Total 1 Balance 359 1200 Intake: Oral 360 1200 Output: Urine/Stool Mix 1 Other: # Voids 1 4 # Bowel Movements 0 1 Stool Characteristics Soft Active Medications: Current Medications Acetaminophen (Tylenol) 650 mg PO Q4HR PRN PRN Reason: Mild Pain (Scale 1-3) Stop: 06/06/19 11:16 Last Admin: 04/11/19 09:25 Dose: 650 mg Acetaminophen (Tylenol) 650 mg PO Q4H PRN PRN Reason: TEMP ABOVE 100 Stop: 06/06/19 11:35 Al Hydrox/Mg Hydrox/Simethicone (Maalox) 30 ml PO Q4HR PRN PRN Reason: GI DISTRESS Stop: 06/06/19 11:16 Lorazepam (Ativan) 0.5 mg PO Q6HR PRN; Protocol PRN Reason: Anxiety Stop: 06/06/19 11:20 Last Admin: 04/12/19 08:59 Dose: 0.5 mg Magnesium Hydroxide (Milk Of Magnesia) 30 ml PO HS PRN PRN Reason: Constipation Multivitamins/Vitamin C (Theragran) 1 tab PO DAILY DAYLIN Stop: 06/07/19 08:59 Last Admin: 04/16/19 09:00 Dose: 1 tab Quetiapine Fumarate (Seroquel) 25 mg PO HS DAYLIN; Protocol Stop: 06/13/19 20:59 Last Admin: 04/15/19 20:39 Dose: 25 mg Zolpidem Tartrate (Ambien) 5 mg PO HS PRN PRN Reason: Insomnia Stop: 06/06/19 11:16 Last Admin: 04/13/19 21:06 Dose: 5 mg General: demented HEENT: NC/AT, PERRLA, EOMI, anicteric sclerae, throat clear Neck: Supple, No JVD, No thyromegaly, +2 carotid pulse wo bruit, No LAD, + JVD Lungs: CTAB Cardiovascular: RRR, Normal S1, Normal S2, without murmur Abdomen: soft, non-tender, non-distended Extremities: clear Neurological: no change Internal Medicine Assmt/Plan - Assessment Assessment: 1.DJD. 2.DEMENTIA. 3.PSYCHOSIS - Plan Plan: CONTINUE ON CURRENT MEDICATION AND DET Nutritional Asmnt/Malnutr-PDOC - Dietary Evaluation Malnutrition Findings (Please click <Entered> for more info): Nutritional Asmnt/Malnutrition Start: 04/10/19 11: 32 Text: Status: Complete Freq: Protocol: Document 04/10/19 11:32 RUFINO (Rec: 04/10/19 11:36 RUFINO [id number]) Nutritional Asmnt/Malnutrition Patient General Information Nutritional Screening Low Risk Consult Diagnosis Psychosis Pertinent Medical Hx/Surgical Hx DJD, Dementia, Psychosis Subjective Information Consult: Wound to abdomen/ nutrition Pt is a 69-year-old female admitted on 04/07 d/t psychosis . Pt is eating an estimated 45 % of meals x2 days Per Meal/ Nutrition Activity Record. Dietary is currently providing an estimated 2100 kcals and 100 gm Pro, per Pt PO intake this is providing an estimated 945 kcals and 45gm Pro to meet 60% kcal and 70% Pro needs. Spoke with nurse Bermudez, pt ate good this morning. Stated he will update the meal/nutrition activity log for PO yesterday as she ate well. Stated pt wound is healed well, no longer open and scab is almost gone as well. Reviewed wound pictures in pt chart, wound progression documented and wound is scabbed and healing as Lara stated. Anthropometrics HT: 54 WT: 139 LB (63.18 kg) BMI: 23.89 (Normal) GI/ Skin Integrity GI: WNL, Soft, Flat BM: Not Noted I/O: 240/Not Noted Skin: Abdominal Wound, erythema, reddened Vasquez: 21 Diet Order: Regular Estimated Energy Needs: ( Geriatric, CBW) 7339-1003 kcals (25-30 kcals/ kg) 63-76g Pro (1.0-1.2 g/kg) 3403-5627 ml (25-30 ml/kg) Current Diet Order/ Nutrition Support Regular Pertinent Medications Maalox (PRN), MOM (PRN), Theragran Pertinent Labs No pertinent labs drawn/ charted. Nutritional Hx/Data Height 1.63 m Height (Calculated Centimeters) 162.6 Current Weight (lbs) 63.049 kg Weight (Calculated Kilograms) 63.0 Weight (Calculated Grams) 15929.3 [place] Body Weight 120 LB (54.55 kg) % [place] Body Weight 116 Body Mass Index (BMI) 23.8 Weight Status Approriate GI Symptoms GI Symptoms None Last BM Not Noted Skin Integrity/Comment: Skin: Abdominal Wound, erythema, reddened Vasquez: 21 Nurse, Lara stated pt wound is healed well, no longer open and scab is almost gone as well. Reviewed wound pictures in pt chart, wound progression documented, and wound is scabbed and healing as Lara stated. Estimated Nutritional Goals BEE in Kcals: Using Current wt Calories/Kcals/Kg 25-30 Kcals Calculated 2062-6096 Protein: Using Current wt Protein g/k.0-1.2 Protein Calculated 63-76 Fluid: ml 7333-5618 ml (25-30 ml/kg) Nutritional Problem No current Nutrition Prob Problem No nutrition diagnosis at this time. Etiology N/A Signs/Symptoms: N/A Malnutrition Related to Morbid Obesity Malnutrition related to morbid obesity No Intervention/Recommendation Comments Continue regular diet as tolerated. Expected Outcomes/Goals Expected Outcomes/Goals 1. PO intake to meet 75% of estimated nutritional needs. 2. Monitor PO intake, wt, nutrition related labs, and skin integrity to trend WNL. 3. F/U as low risk in 7-10 days, 04/17-04/20
[2019-04-17] MEDS: Multivitamin Tab PO SCH (08:37)
--- NOTE | 2019-04-17 20:22 | Internal Medicine Prog Note ---
Internal Medicine Subjective - Subjective Service Date: 04/17/19 Patient seen and examined:: without staff (SHE IS DOING WELL) Patient is:: awake, non-verbal, in bed, confused Per staff patient has:: no adverse event Internal Medicine Objective - Physical Exam Vitals and I&O: Vital Signs Temp 96.7 F 04/17/19 14:00 Pulse 69 04/17/19 14:00 Resp 20 04/17/19 14:00 BP 112/46 04/17/19 14:00 Pulse Ox 97 04/17/19 14:00 Intake & Output 04/17/19 04/17/19 04/18/19 06:59 18:59 06:59 Intake Total 360 1200 Balance 360 1200 Intake: Oral 360 1200 Other: # Voids 3 4 # Bowel Movements 1 Active Medications: Current Medications Acetaminophen (Tylenol) 650 mg PO Q4HR PRN PRN Reason: Mild Pain (Scale 1-3) Stop: 06/06/19 11:16 Last Admin: 04/11/19 09:25 Dose: 650 mg Acetaminophen (Tylenol) 650 mg PO Q4H PRN PRN Reason: TEMP ABOVE 100 Stop: 06/06/19 11:35 Al Hydrox/Mg Hydrox/Simethicone (Maalox) 30 ml PO Q4HR PRN PRN Reason: GI DISTRESS Stop: 06/06/19 11:16 Lorazepam (Ativan) 0.5 mg PO Q6HR PRN; Protocol PRN Reason: Anxiety Stop: 06/06/19 11:20 Last Admin: 04/17/19 08:37 Dose: 0.5 mg Magnesium Hydroxide (Milk Of Magnesia) 30 ml PO HS PRN PRN Reason: Constipation Multivitamins/Vitamin C (Theragran) 1 tab PO DAILY DAYLIN Stop: 06/07/19 08:59 Last Admin: 04/17/19 08:37 Dose: 1 tab Quetiapine Fumarate (Seroquel) 25 mg PO BID DAYLIN; Protocol Stop: 06/16/19 16:59 Last Admin: 04/17/19 16:56 Dose: 25 mg Zolpidem Tartrate (Ambien) 5 mg PO HS PRN PRN Reason: Insomnia Stop: 06/06/19 11:16 Last Admin: 04/16/19 20:48 Dose: 5 mg General: demented HEENT: NC/AT, PERRLA, EOMI, anicteric sclerae, throat clear Neck: Supple, No JVD, No thyromegaly, +2 carotid pulse wo bruit, No LAD, + JVD Lungs: CTAB Cardiovascular: RRR, Normal S1, Normal S2, without murmur Abdomen: soft, non-tender, non-distended Extremities: clear Neurological: no change Internal Medicine Assmt/Plan - Assessment Assessment: 1.DJD. 2.DEMENTIA. 3.PSYCHOSIS - Plan Plan: CONTINUE ON CURRENT MEDICATION AND DET Nutritional Asmnt/Malnutr-PDOC - Dietary Evaluation Malnutrition Findings (Please click <Entered> for more info): Nutritional Asmnt/Malnutrition Start: 04/10/19 11: 32 Text: Status: Complete Freq: Protocol: Document 04/10/19 11:32 RUFINO (Rec: 04/10/19 11:36 RUFINO [id number]) Nutritional Asmnt/Malnutrition Patient General Information Nutritional Screening Low Risk Consult Diagnosis Psychosis Pertinent Medical Hx/Surgical Hx DJD, Dementia, Psychosis Subjective Information Consult: Wound to abdomen/ nutrition Pt is a 69-year-old female admitted on 04/07 d/t psychosis . Pt is eating an estimated 45 % of meals x2 days Per Meal/ Nutrition Activity Record. Dietary is currently providing an estimated 2100 kcals and 100 gm Pro, per Pt PO intake this is providing an estimated 945 kcals and 45gm Pro to meet 60% kcal and 70% Pro needs. Spoke with nurse Bermudez, pt ate good this morning. Stated he will update the meal/nutrition activity log for PO yesterday as she ate well. Stated pt wound is healed well, no longer open and scab is almost gone as well. Reviewed wound pictures in pt chart, wound progression documented and wound is scabbed and healing as Lara stated. Anthropometrics HT: 54 WT: 139 LB (63.18 kg) BMI: 23.89 (Normal) GI/ Skin Integrity GI: WNL, Soft, Flat BM: Not Noted I/O: 240/Not Noted Skin: Abdominal Wound, erythema, reddened Vasquez: 21 Diet Order: Regular Estimated Energy Needs: ( Geriatric, CBW) 5772-3400 kcals (25-30 kcals/ kg) 63-76g Pro (1.0-1.2 g/kg) 8565-8571 ml (25-30 ml/kg) Current Diet Order/ Nutrition Support Regular Pertinent Medications Maalox (PRN), MOM (PRN), Theragran Pertinent Labs No pertinent labs drawn/ charted. Nutritional Hx/Data Height 1.63 m Height (Calculated Centimeters) 162.6 Current Weight (lbs) 63.049 kg Weight (Calculated Kilograms) 63.0 Weight (Calculated Grams) 77800.3 [place] Body Weight 120 LB (54.55 kg) % [place] Body Weight 116 Body Mass Index (BMI) 23.8 Weight Status Approriate GI Symptoms GI Symptoms None Last BM Not Noted Skin Integrity/Comment: Skin: Abdominal Wound, erythema, reddened Vasquez: 21 Nurse, Lara stated pt wound is healed well, no longer open and scab is almost gone as well. Reviewed wound pictures in pt chart, wound progression documented, and wound is scabbed and healing as Lara stated. Estimated Nutritional Goals BEE in Kcals: Using Current wt Calories/Kcals/Kg 25-30 Kcals Calculated 1601-3727 Protein: Using Current wt Protein g/k.0-1.2 Protein Calculated 63-76 Fluid: ml 2703-8544 ml (25-30 ml/kg) Nutritional Problem No current Nutrition Prob Problem No nutrition diagnosis at this time. Etiology N/A Signs/Symptoms: N/A Malnutrition Related to Morbid Obesity Malnutrition related to morbid obesity No Intervention/Recommendation Comments Continue regular diet as tolerated. Expected Outcomes/Goals Expected Outcomes/Goals 1. PO intake to meet 75% of estimated nutritional needs. 2. Monitor PO intake, wt, nutrition related labs, and skin integrity to trend WNL. 3. F/U as low risk in 7-10 days, 04/17-04/20
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
--- NOTE | 2019-04-18 08:04 | Progress Notes ---
DATE: 04/17/2019 SUBJECTIVE: Staff was spoken to. The patient is interviewed. Mood is noted to be irritable. Affect is constricted. She is pacing most of the time on the unit. Insight and judgment are noted to be still impaired. Impulse control seems to be limited. No side effects to the medications are noted. The patient, however has been grossly psychotic and needs to be redirected. The patient is currently on Seroquel and has been able to tolerate the medication. ASSESSMENT: The patient is still psychotic. PLAN: To increase the dose on the Clozaril to 25 mg twice a day and follow the patient up with supportive therapy. JOB# [id number]
[2019-04-18] MEDS: Multivitamin Tab PO SCH (08:17)
--- NOTE | 2019-04-18 20:54 | Internal Medicine Prog Note ---
Internal Medicine Subjective - Subjective Service Date: 04/18/19 Patient seen and examined:: without staff (SHE IS CONFUSED) Patient is:: awake, non-verbal, in bed, confused Per staff patient has:: no adverse event Internal Medicine Objective - Physical Exam Vitals and I&O: Vital Signs Temp 98.1 F 04/18/19 14:56 Pulse 73 04/18/19 14:56 Resp 20 04/18/19 14:56 BP 112/77 04/18/19 14:56 Pulse Ox 97 04/18/19 14:56 Intake & Output 04/18/19 04/18/19 04/19/19 06:59 18:59 06:59 Intake Total 300 1000 Balance 300 1000 Intake: Oral 300 1000 Other: # Voids 3 4 # Bowel Movements 1 Active Medications: Current Medications Acetaminophen (Tylenol) 650 mg PO Q4HR PRN PRN Reason: Mild Pain (Scale 1-3) Stop: 06/06/19 11:16 Last Admin: 04/11/19 09:25 Dose: 650 mg Acetaminophen (Tylenol) 650 mg PO Q4H PRN PRN Reason: TEMP ABOVE 100 Stop: 06/06/19 11:35 Al Hydrox/Mg Hydrox/Simethicone (Maalox) 30 ml PO Q4HR PRN PRN Reason: GI DISTRESS Stop: 06/06/19 11:16 Lorazepam (Ativan) 0.5 mg PO Q6HR PRN; Protocol PRN Reason: Anxiety Stop: 06/06/19 11:20 Last Admin: 04/18/19 08:17 Dose: 0.5 mg Magnesium Hydroxide (Milk Of Magnesia) 30 ml PO HS PRN PRN Reason: Constipation Multivitamins/Vitamin C (Theragran) 1 tab PO DAILY DAYLIN Stop: 06/07/19 08:59 Last Admin: 04/18/19 08:17 Dose: 1 tab Quetiapine Fumarate (Seroquel) 25 mg PO BID DAYLIN; Protocol Stop: 06/16/19 16:59 Last Admin: 04/18/19 17:52 Dose: 25 mg Zolpidem Tartrate (Ambien) 5 mg PO HS PRN PRN Reason: Insomnia Stop: 06/06/19 11:16 Last Admin: 04/18/19 20:45 Dose: 5 mg General: demented HEENT: NC/AT, PERRLA, EOMI, anicteric sclerae, throat clear Neck: Supple, No JVD, No thyromegaly, +2 carotid pulse wo bruit, No LAD, + JVD Lungs: CTAB Cardiovascular: RRR, Normal S1, Normal S2, without murmur Abdomen: soft, non-tender, non-distended Extremities: clear Neurological: no change Internal Medicine Assmt/Plan - Assessment Assessment: 1.DJD. 2.DEMENTIA. 3.PSYCHOSIS - Plan Plan: CONTINUE ON CURRENT MEDICATION AND DIET Nutritional Asmnt/Malnutr-PDOC - Dietary Evaluation Malnutrition Findings (Please click <Entered> for more info): Nutritional Asmnt/Malnutrition Start: 04/10/19 11: 32 Text: Status: Complete Freq: Protocol: Document 04/10/19 11:32 RUFINO (Rec: 04/10/19 11:36 RUFINO [id number]) Nutritional Asmnt/Malnutrition Patient General Information Nutritional Screening Low Risk Consult Diagnosis Psychosis Pertinent Medical Hx/Surgical Hx DJD, Dementia, Psychosis Subjective Information Consult: Wound to abdomen/ nutrition Pt is a 69-year-old female admitted on 04/07 d/t psychosis . Pt is eating an estimated 45 % of meals x2 days Per Meal/ Nutrition Activity Record. Dietary is currently providing an estimated 2100 kcals and 100 gm Pro, per Pt PO intake this is providing an estimated 945 kcals and 45gm Pro to meet 60% kcal and 70% Pro needs. Spoke with nurse Bermudez, pt ate good this morning. Stated he will update the meal/nutrition activity log for PO yesterday as she ate well. Stated pt wound is healed well, no longer open and scab is almost gone as well. Reviewed wound pictures in pt chart, wound progression documented and wound is scabbed and healing as Lara stated. Anthropometrics HT: 54 WT: 139 LB (63.18 kg) BMI: 23.89 (Normal) GI/ Skin Integrity GI: WNL, Soft, Flat BM: Not Noted I/O: 240/Not Noted Skin: Abdominal Wound, erythema, reddened Vasquez: 21 Diet Order: Regular Estimated Energy Needs: ( Geriatric, CBW) 2183-9334 kcals (25-30 kcals/ kg) 63-76g Pro (1.0-1.2 g/kg) 0916-0796 ml (25-30 ml/kg) Current Diet Order/ Nutrition Support Regular Pertinent Medications Maalox (PRN), MOM (PRN), Theragran Pertinent Labs No pertinent labs drawn/ charted. Nutritional Hx/Data Height 1.63 m Height (Calculated Centimeters) 162.6 Current Weight (lbs) 63.049 kg Weight (Calculated Kilograms) 63.0 Weight (Calculated Grams) 09408.3 [place] Body Weight 120 LB (54.55 kg) % [place] Body Weight 116 Body Mass Index (BMI) 23.8 Weight Status Approriate GI Symptoms GI Symptoms None Last BM Not Noted Skin Integrity/Comment: Skin: Abdominal Wound, erythema, reddened Vasquez: 21 Nurse, Lara stated pt wound is healed well, no longer open and scab is almost gone as well. Reviewed wound pictures in pt chart, wound progression documented, and wound is scabbed and healing as Lara stated. Estimated Nutritional Goals BEE in Kcals: Using Current wt Calories/Kcals/Kg 25-30 Kcals Calculated 9778-2648 Protein: Using Current wt Protein g/k.0-1.2 Protein Calculated 63-76 Fluid: ml 2522-1422 ml (25-30 ml/kg) Nutritional Problem No current Nutrition Prob Problem No nutrition diagnosis at this time. Etiology N/A Signs/Symptoms: N/A Malnutrition Related to Morbid Obesity Malnutrition related to morbid obesity No Intervention/Recommendation Comments Continue regular diet as tolerated. Expected Outcomes/Goals Expected Outcomes/Goals 1. PO intake to meet 75% of estimated nutritional needs. 2. Monitor PO intake, wt, nutrition related labs, and skin integrity to trend WNL. 3. F/U as low risk in 7-10 days, 04/17-04/20
--- NOTE | 2019-04-18 23:24 | Progress Notes ---
DATE: 04/18/2019 PSYCHIATRIC PROGRESS NOTE SUBJECTIVE: Staff was spoken to. The patient is interviewed. Mood is noted to be irritable. Affect is constricted. The patient's insight and judgment are noted to be still impaired. The patient is pacing most of the time on the unit. Coping skills are noted to be extremely poor. Insight and judgment are also noted to be limited. No side effects to medications are noted. The patient has been having difficult time to cope with the stress. ASSESSMENT: The patient is still psychotic and impulsive. PLAN: To continue the patient with the supportive therapy, encouraged the patient to verbalize the concerns rather than to act out. JOB# [id number]
[2019-04-19] MEDS: Multivitamin Tab PO SCH (08:26)
--- NOTE | 2019-04-20 00:21 | Progress Notes ---
DATE: 04/19/2019 SUBJECTIVE: Staff was spoken to. The patient is interviewed. Mood is noted to be anxious. The patient is pacing on the unit, but the patient denies any command hallucinations. Insight and judgment at this time are noted to be improving. Impulse control seems to be fair. No side effects to the medications are noted. The patient has been able to verbalize the concerns rather than to act out. ASSESSMENT: The patient is stabilizing. PLAN: To continue the patient with the supportive therapy, encouraged the patient to verbalize the concerns rather than to act out. JOB# [id number]
[2019-04-20] MEDS: Multivitamin Tab PO SCH (08:36)
--- NOTE | 2019-04-20 14:19 | Internal Medicine Prog Note ---
Internal Medicine Subjective - Subjective Service Date: 04/20/19 Patient seen and examined:: without staff (SHE IS DOING WELL) Patient is:: awake, non-verbal, in bed, confused Per staff patient has:: no adverse event Internal Medicine Objective - Physical Exam Vitals and I&O: Vital Signs Temp 98.6 F 04/20/19 07:00 Pulse 77 04/20/19 07:00 Resp 18 04/20/19 08:00 BP 122/74 04/20/19 07:00 Pulse Ox 96 04/20/19 07:00 Intake & Output 04/19/19 04/20/19 04/20/19 18:59 06:59 18:59 Intake Total 900 240 120 Output Total 1 Balance 900 239 120 Intake: Oral 900 240 120 Output: Urine/Stool Mix 1 Other: # Voids 3 1 2 # Bowel Movements 1 1 Active Medications: Current Medications Acetaminophen (Tylenol) 650 mg PO Q4HR PRN PRN Reason: Mild Pain (Scale 1-3) Stop: 06/06/19 11:16 Last Admin: 04/11/19 09:25 Dose: 650 mg Acetaminophen (Tylenol) 650 mg PO Q4H PRN PRN Reason: TEMP ABOVE 100 Stop: 06/06/19 11:35 Al Hydrox/Mg Hydrox/Simethicone (Maalox) 30 ml PO Q4HR PRN PRN Reason: GI DISTRESS Stop: 06/06/19 11:16 Lorazepam (Ativan) 0.5 mg PO Q6HR PRN; Protocol PRN Reason: Anxiety Stop: 06/06/19 11:20 Last Admin: 04/19/19 17:59 Dose: 0.5 mg Magnesium Hydroxide (Milk Of Magnesia) 30 ml PO HS PRN PRN Reason: Constipation Multivitamins/Vitamin C (Theragran) 1 tab PO DAILY DAYLIN Stop: 06/07/19 08:59 Last Admin: 04/20/19 08:36 Dose: 1 tab Quetiapine Fumarate (Seroquel) 25 mg PO BID DAYLIN; Protocol Stop: 06/16/19 16:59 Last Admin: 04/20/19 08:36 Dose: 25 mg Zolpidem Tartrate (Ambien) 5 mg PO HS PRN PRN Reason: Insomnia Stop: 06/06/19 11:16 Last Admin: 04/18/19 20:45 Dose: 5 mg General: demented HEENT: NC/AT, PERRLA, EOMI, anicteric sclerae, throat clear Neck: Supple, No JVD, No thyromegaly, +2 carotid pulse wo bruit, No LAD, + JVD Lungs: CTAB Cardiovascular: RRR, Normal S1, Normal S2, without murmur Abdomen: soft, non-tender, non-distended Extremities: clear Neurological: no change Internal Medicine Assmt/Plan - Assessment Assessment: 1.DJD. 2.DEMENTIA. 3.PSYCHOSIS - Plan Plan: CONTINUE ON CURRENT MEDICATION AND DIET Nutritional Asmnt/Malnutr-PDOC - Dietary Evaluation Malnutrition Findings (Please click <Entered> for more info): Nutritional Asmnt/Malnutrition Start: 04/10/19 11: 32 Text: Status: Complete Freq: Protocol: Document 04/10/19 11:32 RUFINO (Rec: 04/10/19 11:36 RUFINO [email or web address]) Nutritional Asmnt/Malnutrition Patient General Information Nutritional Screening Low Risk Consult Diagnosis Psychosis Pertinent Medical Hx/Surgical Hx DJD, Dementia, Psychosis Subjective Information Consult: Wound to abdomen/ nutrition Pt is a 69-year-old female admitted on 04/07 d/t psychosis . Pt is eating an estimated 45 % of meals x2 days Per Meal/ Nutrition Activity Record. Dietary is currently providing an estimated 2100 kcals and 100 gm Pro, per Pt PO intake this is providing an estimated 945 kcals and 45gm Pro to meet 60% kcal and 70% Pro needs. Spoke with nurse Lara, pt ate good this morning. Stated he will update the meal/nutrition activity log for PO yesterday as she ate well. Stated pt wound is healed well, no longer open and scab is almost gone as well. Reviewed wound pictures in pt chart, wound progression documented and wound is scabbed and healing as Lara stated. Anthropometrics HT: 54 WT: 139 LB (63.18 kg) BMI: 23.89 (Normal) GI/ Skin Integrity GI: WNL, Soft, Flat BM: Not Noted I/O: 240/Not Noted Skin: Abdominal Wound, erythema, reddened Vasquez: 21 Diet Order: Regular Estimated Energy Needs: ( Geriatric, CBW) 1232-0970 kcals (25-30 kcals/ kg) 63-76g Pro (1.0-1.2 g/kg) 2547-8816 ml (25-30 ml/kg) Current Diet Order/ Nutrition Support Regular Pertinent Medications Maalox (PRN), MOM (PRN), Theragran Pertinent Labs No pertinent labs drawn/ charted. Nutritional Hx/Data Height 1.63 m Height (Calculated Centimeters) 162.6 Current Weight (lbs) 63.049 kg Weight (Calculated Kilograms) 63.0 Weight (Calculated Grams) 59571.3 [place] Body Weight 120 LB (54.55 kg) % [place] Body Weight 116 Body Mass Index (BMI) 23.8 Weight Status Approriate GI Symptoms GI Symptoms None Last BM Not Noted Skin Integrity/Comment: Skin: Abdominal Wound, erythema, reddened Vasquez: 21 Nurse, Lara stated pt wound is healed well, no longer open and scab is almost gone as well. Reviewed wound pictures in pt chart, wound progression documented, and wound is scabbed and healing as Lara stated. Estimated Nutritional Goals BEE in Kcals: Using Current wt Calories/Kcals/Kg 25-30 Kcals Calculated 9625-0667 Protein: Using Current wt Protein g/k.0-1.2 Protein Calculated 63-76 Fluid: ml 1669-4745 ml (25-30 ml/kg) Nutritional Problem No current Nutrition Prob Problem No nutrition diagnosis at this time. Etiology N/A Signs/Symptoms: N/A Malnutrition Related to Morbid Obesity Malnutrition related to morbid obesity No Intervention/Recommendation Comments Continue regular diet as tolerated. Expected Outcomes/Goals Expected Outcomes/Goals 1. PO intake to meet 75% of estimated nutritional needs. 2. Monitor PO intake, wt, nutrition related labs, and skin integrity to trend WNL. 3. F/U as low risk in 7-10 days, 04/17-04/20
--- NOTE | 2019-04-20 14:19 | Internal Medicine Prog Note ---
Internal Medicine Subjective - Subjective Service Date: 04/19/19 Patient seen and examined:: without staff (SHE IS DOING BETTER) Patient is:: awake, non-verbal, in bed, confused Per staff patient has:: no adverse event Internal Medicine Objective - Physical Exam Vitals and I&O: Vital Signs Temp 97.3 F 04/19/19 06:31 Pulse 65 04/19/19 06:31 Resp 18 04/19/19 06:31 BP 144/71 04/19/19 06:31 Pulse Ox 95 04/19/19 06:31 Intake & Output 04/18/19 04/19/19 04/19/19 18:59 06:59 18:59 Intake Total 1000 240 Output Total 1 Balance 1000 239 Intake: Oral 1000 240 Output: Urine/Stool Mix 1 Other: # Voids 4 1 # Bowel Movements 1 1 Active Medications: Current Medications Acetaminophen (Tylenol) 650 mg PO Q4HR PRN PRN Reason: Mild Pain (Scale 1-3) Stop: 06/06/19 11:16 Last Admin: 04/11/19 09:25 Dose: 650 mg Acetaminophen (Tylenol) 650 mg PO Q4H PRN PRN Reason: TEMP ABOVE 100 Stop: 06/06/19 11:35 Al Hydrox/Mg Hydrox/Simethicone (Maalox) 30 ml PO Q4HR PRN PRN Reason: GI DISTRESS Stop: 06/06/19 11:16 Lorazepam (Ativan) 0.5 mg PO Q6HR PRN; Protocol PRN Reason: Anxiety Stop: 06/06/19 11:20 Last Admin: 04/19/19 12:39 Dose: 0.5 mg Magnesium Hydroxide (Milk Of Magnesia) 30 ml PO HS PRN PRN Reason: Constipation Multivitamins/Vitamin C (Theragran) 1 tab PO DAILY DAYLIN Stop: 06/07/19 08:59 Last Admin: 04/19/19 08:26 Dose: 1 tab Quetiapine Fumarate (Seroquel) 25 mg PO BID DAYLIN; Protocol Stop: 06/16/19 16:59 Last Admin: 04/19/19 08:26 Dose: 25 mg Zolpidem Tartrate (Ambien) 5 mg PO HS PRN PRN Reason: Insomnia Stop: 06/06/19 11:16 Last Admin: 04/18/19 20:45 Dose: 5 mg General: demented HEENT: NC/AT, PERRLA, EOMI, anicteric sclerae, throat clear Neck: Supple, No JVD, No thyromegaly, +2 carotid pulse wo bruit, No LAD, + JVD Lungs: CTAB Cardiovascular: RRR, Normal S1, Normal S2, without murmur Abdomen: soft, non-tender, non-distended Extremities: clear Neurological: no change Internal Medicine Assmt/Plan - Assessment Assessment: 1.DJD. 2.DEMENTIA. 3.PSYCHOSIS - Plan Plan: CONTINUE ON CURRENT MEDICATION AND DIET Nutritional Asmnt/Malnutr-PDOC - Dietary Evaluation Malnutrition Findings (Please click <Entered> for more info): Nutritional Asmnt/Malnutrition Start: 04/10/19 11: 32 Text: Status: Complete Freq: Protocol: Document 04/10/19 11:32 RUFINO (Rec: 04/10/19 11:36 RUFINO [id number]) Nutritional Asmnt/Malnutrition Patient General Information Nutritional Screening Low Risk Consult Diagnosis Psychosis Pertinent Medical Hx/Surgical Hx DJD, Dementia, Psychosis Subjective Information Consult: Wound to abdomen/ nutrition Pt is a 69-year-old female admitted on 04/07 d/t psychosis . Pt is eating an estimated 45 % of meals x2 days Per Meal/ Nutrition Activity Record. Dietary is currently providing an estimated 2100 kcals and 100 gm Pro, per Pt PO intake this is providing an estimated 945 kcals and 45gm Pro to meet 60% kcal and 70% Pro needs. Spoke with nurse Bermudez, pt ate good this morning. Stated he will update the meal/nutrition activity log for PO yesterday as she ate well. Stated pt wound is healed well, no longer open and scab is almost gone as well. Reviewed wound pictures in pt chart, wound progression documented and wound is scabbed and healing as Lara stated. Anthropometrics HT: 54 WT: 139 LB (63.18 kg) BMI: 23.89 (Normal) GI/ Skin Integrity GI: WNL, Soft, Flat BM: Not Noted I/O: 240/Not Noted Skin: Abdominal Wound, erythema, reddened Vasquez: 21 Diet Order: Regular Estimated Energy Needs: ( Geriatric, CBW) 8252-5461 kcals (25-30 kcals/ kg) 63-76g Pro (1.0-1.2 g/kg) 4117-6953 ml (25-30 ml/kg) Current Diet Order/ Nutrition Support Regular Pertinent Medications Maalox (PRN), MOM (PRN), Theragran Pertinent Labs No pertinent labs drawn/ charted. Nutritional Hx/Data Height 1.63 m Height (Calculated Centimeters) 162.6 Current Weight (lbs) 63.049 kg Weight (Calculated Kilograms) 63.0 Weight (Calculated Grams) 14095.3 [place] Body Weight 120 LB (54.55 kg) % [place] Body Weight 116 Body Mass Index (BMI) 23.8 Weight Status Approriate GI Symptoms GI Symptoms None Last BM Not Noted Skin Integrity/Comment: Skin: Abdominal Wound, erythema, reddened Vasquez: 21 NurseLara stated pt wound is healed well, no longer open and scab is almost gone as well. Reviewed wound pictures in pt chart, wound progression documented, and wound is scabbed and healing as Lara stated. Estimated Nutritional Goals BEE in Kcals: Using Current wt Calories/Kcals/Kg 25-30 Kcals Calculated 7868-6538 Protein: Using Current wt Protein g/k.0-1.2 Protein Calculated 63-76 Fluid: ml 9760-5350 ml (25-30 ml/kg) Nutritional Problem No current Nutrition Prob Problem No nutrition diagnosis at this time. Etiology N/A Signs/Symptoms: N/A Malnutrition Related to Morbid Obesity Malnutrition related to morbid obesity No Intervention/Recommendation Comments Continue regular diet as tolerated. Expected Outcomes/Goals Expected Outcomes/Goals 1. PO intake to meet 75% of estimated nutritional needs. 2. Monitor PO intake, wt, nutrition related labs, and skin integrity to trend WNL. 3. F/U as low risk in 7-10 days, 04/17-04/20
--- NOTE | 2019-04-21 01:46 | Progress Notes ---
DATE: 04/20/2019 PSYCHIATRIC PROGRESS NOTE SUBJECTIVE: Staff was spoken to. The patient is interviewed. Mood is noted to be anxious. The patient's insight and judgment are noted to be improving. Impulse control is noted to be fair. The patient is stating that she was supposed to be leaving, but something happened and the patient is reported to be going to [facility] in [place]. The patient at this time is not presenting with any side effects. No major behavioral problems are noted at this time. ASSESSMENT: The patient is stabilizing. PLAN: To continue the patient with the supportive therapy and discharge the patient when placement is available. JOB# [id number]
[2019-04-21] MEDS: Multivitamin Tab PO SCH (08:37)
--- NOTE | 2019-04-21 15:50 | Progress Notes ---
DATE: 04/21/2019 SUBJECTIVE: Staff was spoken to. The patient is interviewed. Mood is noted to be anxious. Affect is appropriate. Not suicidal or homicidal. Insight and judgment are noted to be improving. Impulse control is noted to be fair. Coping skills are noted to be fair. The patient has been able to tolerate the medications. No side effects to medications are noted. The patient is willing to comply with the treatment on an outpatient basis. ASSESSMENT: The patient is stabilizing. PLAN: To discharge the patient today for followup on outpatient basis. JOB# [id number]
--- NOTE | 2019-04-21 16:18 | Progress Notes ---
DATE: 04/20/2019 PSYCHOLOGY PROGRESS NOTE SUBJECTIVE: The patient is seen by request from the staff. The patient is possibly discharging today. The patient presents as somewhat anxious. Staff reports the patient's impulse control has been improving and that she is going to discharge to [facility] in [place]. Staff indicates there have been no major behavioral problems in the last 3-5 days. The patient was inquisitive regarding why this jingle writer came to discuss discharge as well as make recommendations for her mental health stability. This was discussed with the patient. ASSESSMENT: The patient seems to be stabilizing. The patient had no other concerns. There was no indication of any hopelessness or helplessness. The patient seems to be following through with her treatment recommendations. PLAN: We provided supportive psychotherapy, which included positive reinforcement for the patient to follow through with all treatment recommendations and also to seek therapeutic interventions if needed at her placement. This jingle writer provided coping strategies for phase of life issues as well. No followup is indicated as the patient is discharging today. [facility]# [id number] JACEY
--- NOTE | 2019-04-23 11:03 | Discharge Summary ---
DATE OF DISCHARGE: 04/21/2019 IDENTIFYING DATA: The patient is a 69-year-old woman, currently homeless. Information obtained by directly interviewing the patient as well as reviewing the admission papers and they are reliable. JUSTIFICATION OF HOSPITALIZATION: The patient is admitted on 0 for being gravely disabled and a danger to self. CHIEF COMPLAINT: "I don't know." DIAGNOSES AT THE TIME OF ADMISSION: AXIS I: Schizophrenia, chronic, paranoid type. AXIS II: None. AXIS III: As per Dr. Pyle. HISTORY OF PRESENT ILLNESS: Please refer to the 04/07/2019 dictation done by me. Physical examination at the time of admission has been done and the blood work done at the time of hospitalization also has been reviewed by Dr. Pyle. No major intervention was needed. HOSPITAL COURSE AND RESPONSE TO TREATMENT: The patient has been observed on inpatient unit, provided with supportive psychotherapy. The patient has been closely monitored. We encouraged to verbalize the concerns rather than to act out. The patient continues to be very disruptive and has been getting into other people's rooms and trying to take their stuff. The patient continues to be paranoid. The patient has initially been placed on olanzapine that has not been doing any better, then the patient was placed on quetiapine. The patient has been placed on quetiapine that was gradually increased to 25 mg twice a day. With these medications, the patient has been observed and was noted to be doing fairly well and no major behavioral problems are noted and the patient was finally discharged with the recommendation that she is going to be seeking treatment on an outpatient basis. MENTAL STATUS EXAMINATION: Upon discharge, the patient's mood noted to be less irritable. Affect is appropriate. The patient is not suicidal or homicidal. Insight and judgment are noted to be improving. Impulse control is noted to be fair. No side effects to the medications are noted. The patient has been willing to comply with the treatment. No aggressive behavior is noted. The patient denies any command hallucinations, paranoia is a major concern with the patient. DIAGNOSES AT THE TIME OF THE DISCHARGE: AXIS I: Schizophrenia, chronic, paranoid type. AXIS II: None. AXIS III: None. AFTERCARE PLAN: The patient is discharged to [facility] for further followup on an outpatient basis. PROGNOSIS: At the time of discharge noted to be fair with the treatment. [facility]# [id number]
== END 2019-04-21 13:26 | DRG 885 ==
LOC: GERO 09:46
PROVIDERS: ADMIT Psychiatry & Neurology Psychiatry; ATTEND Psychiatry & Neurology Psychiatry
DX: F20.0 Paranoid schizophrenia (principal); F29 Unspecified psychosis not due to a substance or known physiological condition; M19.90 Unspecified osteoarthritis, unspecified site; F03.90 Unspecified dementia, unspecified severity, without behavioral disturbance, psychotic disturbance, mood disturbance, and anxiety; Z59.0 Homelessness; Z79.899 Other long term (current) drug therapy
CPT/HCPCS: 83036-90; G0410; J7051; Z7610